=== PATIENT | female | born 1985 | race Caucasian/White ===

== ENCOUNTER 2020-11-07 15:16 | Emergency (ER) | payer BC, OTHER ==
[~2020-11-07] VITALS: Ht 172.7 cm; Wt 68.0 kg
[~2020-11-07 15:16] MED LIST: ACHD5005 PO; DCS100C PO; IBP600T1 PO; PREN1TAB25 PO
[2020-11-07] MEDS ORDERED: KETOROLAC 30 MG/ML VIAL IVP STA (15:58)
[2020-11-07] MEDS ORDERED: LACTATED RINGERS 1,000 ML IV STA (15:58)
[2020-11-07] MEDS ORDERED: ONDANSETRON 4 MG/2 ML (SDV) Z0FRAN IVP ONE (16:00)
[2020-11-07 16:15] LABS: HEMATOCRIT 39 % (35-52); HEMOGLOBIN 13.5 G/DL (11.5-16.0); MEAN CORPUSCULAR HEMOGLOBIN 31 PG (25-34); WHITE BLOOD COUNT 6.5 10^3/uL (4.3-11.0)
[2020-11-07 16:16] LABS: BASOPHILS % (AUTO) 1 % (0-10); EOSINOPHILS % (AUTO) 1 % (0-10); LYMPHOCYTES # (AUTO) 0.7 X 10^3 (1.0-4.0); LYMPHOCYTES % (AUTO) 11 % (12-44); MEAN CORPUSCULAR HGB CONC 35 G/DL (32-36); MEAN CORPUSCULAR VOLUME 90 FL (80-99); MEAN PLATELET VOLUME 11.1 FL (7.4-10.4); MONOCYTES # (AUTO) 0.4 X 10^3 (0.0-1.0); MONOCYTES % (AUTO) 7 % (0-12); NEUTROPHILS # (AUTO) 5.3 X 10^3 (1.8-7.8); NEUTROPHILS % (AUTO) 81 % (42-75); PLATELET COUNT 260 10^3/uL (130-400)
--- NOTE | 2020-11-07 16:29 | Diagnostic Imaging Report ---
INDICATION: Cold and flu symptoms. Frontal chest obtained at 03:47 p.m. Heart and mediastinal silhouette are normal in appearance. The lungs are clear. There is no pneumothorax or pleural fluid. IMPRESSION: Negative chest. Dictated by: Dictated on workstation # [id number]
[2020-11-07 16:44] LABS: BUN/CREATININE RATIO 14; CALCIUM 10.1 MG/DL (8.5-10.1); CARBON DIOXIDE 23 MMOL/L (21-32); CHLORIDE 104 MMOL/L (98-107); CREATININE SERUM 0.73 MG/DL (0.60-1.30); GFR ESTIMATED 90; GLUCOSE 114 MG/DL (70-105); POTASSIUM 3.9 MMOL/L (3.6-5.0); SODIUM 139 MMOL/L (135-145)
[2020-11-07 16:45] LABS: ALANINE AMINOTRANSFERASE 23 U/L (0-55); ALBUMIN 5.1 GM/DL (3.2-4.5); ALKALINE PHOSPHATASE 77 U/L (40-136); BILIRUBIN,TOTAL 0.3 MG/DL (0.1-1.0); TOTAL PROTEIN 7.8 GM/DL (6.4-8.2)
[2020-11-07 16:54] LABS: FIBRIN DEGRADATION PRODUCTS 0.24 UG/ML (0.00-0.49); INR 0.9 (0.8-1.4); PROTHROMBIN TIME PATIENT 12.7 SEC (12.2-14.7)
--- NOTE | 2020-11-07 17:03 | ED General ---
General Chief Complaint: Abdominal/GI Problems Stated Complaint: COVID SYMPTOMS Nursing Triage Note: Patient reports sudden onset of nausea/vomiting/head pressure and dizziness this afternoon. States she felt well prior to the onset of her symptoms. Source of Information: Patient Exam Limitations: No Limitations History of Present Illness Date Seen by Provider: Nov 07, 2020 Time Seen by Provider: 15:30 Initial Comments Here with report of nausea, vomiting, headache, dizziness, body aches and overall not feeling. She has not had Covid vaccination. She was at a [employer] and mixed with a lot of people. She did not wear a mask. Overall states that she feels pretty terrible and has body aches everywhere. Timing/Duration: 4-6 Hours Severity: Moderate Associated Systoms: No Chest Pain; Nausea/Vomiting; No Shortness of Air; Weakness Allergies and Home Medications Allergies Coded Allergies: No Known Drug Allergies (Unverified , 04/26/10) Home Medications Docusate Sodium 100 Mg Cap, 100 MG PO BID Prescribed by: YURY JI on 01/29/13 1019 Hydrocodone Bit/Acetaminophen 1 Tab Tablet, 2 TAB PO Q6H PRN Prescribed by: YURY JI on 01/29/13 1019 Ibuprofen 600 Mg Tab, 600 MG PO Q6H PRN Prescribed by: YURY JI on 01/29/13 1019 Vit#96/Ferrous Fum/Fa 1 Each Tablet, 1 TAB PO HS, (Reported) Patient Home Medication List Home Medication List Reviewed: Yes Review of Systems Review of Systems Constitutional: see HPI, chills; No fever; malaise EENTM: nose congestion; No throat pain Respiratory: No cough, No short of breath Cardiovascular: no symptoms reported Gastrointestinal: No diarrhea; nausea, vomiting Genitourinary: no symptoms reported Musculoskeletal: joint pain, muscle pain Skin: no symptoms reported Psychiatric/Neurological: No Symptoms Reported All Other Systems Reviewed Negative Unless Noted: Yes Past Tuafpff-Qzpiot-Gcpxrl Hx Patient Social History Tobacco Use?: No Substance use?: No Alcohol Use?: No Pt feels they are or have been: No Immunizations Up To Date Tetanus Booster (TDap): More than 5yrs Past Medical History Surgeries: Yes Section Respiratory: No Cardiac: No Neurological: No Reproductive Disorders: No Gastrointestinal: Yes Gastroesophageal Reflux Endocrine: Yes Hypothyroidsim Family Medical History Reviewed and Corrections made Physical Exam Vital Signs Vital Signs - First Documented 11/07/20 15:40 Temp 36.0 Pulse 107 Resp 24 B/P (MAP) 150/96 (114) Pulse Ox 100 O2 Delivery Room Air Capillary Refill : Less Than 3 Seconds Height, Weight, BMI Height: '" Weight: 184lbs. oz. 83.432261zo; 22.00 BMI Method: General Appearance: WD/WN, Anxious, Mild Distress HEENT: PERRL/EOMI, Pharynx Normal Neck: Non Tender, Supple Respiratory: Lungs Clear, Normal Breath Sounds Cardiovascular: No Murmur, Tachycardia Gastrointestinal: Non Tender, Soft Back: Normal Inspection, No CVA Tenderness, No Vertebral Tenderness Extremity: Normal Range of Motion, Non Tender Neurologic/Psychiatric: Alert, Oriented x3 Skin: Normal Color, Warm/Dry Progress/Results/Core Measures Suspected Sepsis SIRS Temperature: Pulse: 107 Respiratory Rate: 24 Laboratory Tests 11/07/20 15:40: White Blood Count 6.5 Blood Pressure 150 /96 Mean: 114 Laboratory Tests 11/07/20 15:40: Creatinine 0.73, INR Comment 0.9, Platelet Count 260, Total Bilirubin 0.3 Results/Orders Lab Results Laboratory Tests Test 11/07/20 15:40 Range/Units White Blood Count 6.5 4.3-11.0 10^3/uL Red Blood Count 4.33 L 4.35-5.85 10^6/uL Hemoglobin 13.5 11.5-16.0 G/DL Hematocrit 39 35-52 % Mean Corpuscular Volume 90 80-99 FL Mean Corpuscular Hemoglobin 31 25-34 PG Mean Corpuscular Hemoglobin Concent 35 32-36 G/DL Red Cell Distribution Width 12.2 10.0-14.5 % Platelet Count 260 130-400 10^3/uL Mean Platelet Volume 11.1 H 7.4-10.4 FL Immature Granulocyte % (Auto) 0 % Neutrophils (%) (Auto) 81 H 42-75 % Lymphocytes (%) (Auto) 11 L 12-44 % Monocytes (%) (Auto) 7 0-12 % Eosinophils (%) (Auto) 1 0-10 % Basophils (%) (Auto) 1 0-10 % Neutrophils # (Auto) 5.3 1.8-7.8 X 10^3 Lymphocytes # (Auto) 0.7 L 1.0-4.0 X 10^3 Monocytes # (Auto) 0.4 0.0-1.0 X 10^3 Eosinophils # (Auto) 0.0 0.0-0.3 10^3/uL Basophils # (Auto) 0.0 0.0-0.1 10^3/uL Immature Granulocyte # (Auto) 0.0 0.0-0.1 10^3/uL Percent Immature Platelet Fraction 4.4 0.0-7.6 % Prothrombin Time 12.7 12.2-14.7 SEC INR Comment 0.9 0.8-1.4 Activated Partial Thromboplast Time 28 24-35 SEC D-Dimer 0.24 0.00-0.49 UG/ML Sodium Level 139 135-145 MMOL/L Potassium Level 3.9 3.6-5.0 MMOL/L Chloride Level 104 98-107 MMOL/L Carbon Dioxide Level 23 21-32 MMOL/L Anion Gap 12 5-14 MMOL/L Blood Urea Nitrogen 10 7-18 MG/DL Creatinine 0.73 0.60-1.30 MG/DL Estimat Glomerular Filtration Rate 90 BUN/Creatinine Ratio 14 Glucose Level 114 H 70-105 MG/DL Calcium Level 10.1 8.5-10.1 MG/DL Corrected Calcium 8.5-10.1 MG/DL Total Bilirubin 0.3 0.1-1.0 MG/DL Aspartate Amino Transf (AST/SGOT) 25 5-34 U/L Alanine Aminotransferase (ALT/SGPT) 23 0-55 U/L Alkaline Phosphatase 77 40-136 U/L Total Protein 7.8 6.4-8.2 GM/DL Albumin 5.1 H 3.2-4.5 GM/DL Serum Test, Qualitative NEGATIVE NEGATIVE Micro Results Microbiology 11/07/20 Influenza Types A,B Antigen (CRISTÓBAL) - Final, Complete My Orders Orders - ALEKS MAURICIO MD Chest 1 View Ap/Pa Only (11/07/20 15:54) Ondansetron Injection (Zofran Injectio (11/07/20 16:00) Lactated Ringers (Lr 1000 Ml Iv Solution (11/07/20 15:58) Ed Iv/Invasive Line Start (11/07/20 15:58) Ketorolac Injection (Toradol Injection) (11/07/20 15:58) Cbc With Automated Diff (11/07/20 15:58) Comprehensive Metabolic Panel (11/07/20 15:58) Fibrin Degradation Products (11/07/20 15:58) Hcg,Qualitative Serum (11/07/20 15:58) Protime With Inr (11/07/20 15:58) Partial Thromboplastin Time (11/07/20 15:58) Influenza A And B Antigens (11/07/20 15:58) Covid 19 Inhouse Test (11/07/20 15:58) Medications Given in ED Current Medications Medications Dose Ordered Sig/Inez Route Start Time Stop Time Status Last Admin Dose Admin Ondansetron HCl 4 mg ONCE ONCE IVP 11/07/20 16:00 11/07/20 16:01 DC 11/07/20 16:06 4 MG Vital Signs/I&O 11/07/20 15:40 Temp 36.0 Pulse 107 Resp 24 B/P (MAP) 150/96 (114) Pulse Ox 100 O2 Delivery Room Air Capillary Refill : Less Than 3 Seconds Blood Pressure Mean: 114 Progress Note : Progress Note Seen and evaluated. IV, labs, LR 1 L bolus, Zofran 4 mg IV, Toradol 30 mg IV, influenza screen and Covid screen ordered. Monitor patient. 1730: Influenza screen is positive. We are still pending Covid screen. She is overall feeling better. Pending a few labs. Monitor patient. 1825: Labs reviewed as well as chest x-ray no acute findings other than the influenza. Covid still pending. I did discuss with the patient that she would be a person under investigation for COVID-19 and she will take appropriate precautions. We will initiate Tamiflu due to the double positive influenza. Discharged home with return precautions. Patient verbalized understanding of instructions and agreement with plan. Diagnostic Imaging Diagonstic Imaging: Xray Plain Films/CT/US/NM/MRI: chest Comments [facility]. [place], [place] NAME: LATOSHA CINTRON MED REC#: [id number] PT STATUS: REG ER : 1985 PHYSICIAN: ALEKS MAURICIO MD ADMIT DATE: 11/07/20/ER FS Signed Date of Exam:11/07/20 CHEST 1 VIEW AP/PA ONLY INDICATION: Cold and flu symptoms. Frontal chest obtained at 03:47 p.m. Heart and mediastinal silhouette are normal in appearance. The lungs are clear. There is no pneumothorax or pleural fluid. IMPRESSION: Negative chest. Dictated by: Dictated on workstation # [id number] Dict: 11/07/20 1619 Trans: 11/07/20 1708 [facility] [id number] Interpreted by: PREETHI SHANKS MD Electronically signed by: PREETHI SHANKS MD 11/07/20 1708 Departure Impression Primary Impression: Influenza A Additional Impression: Influenza B Disposition: HOME, SELF-CARE Condition: Stable Departure-Patient Inst. Decision time for Depature: 18:26 Referrals: NO,LOCAL PHYSICIAN (PCP/Family) Primary Care Physician Patient Instructions: COVID-19 ED, Flu, Adult (DC) Add. Discharge Instructions: All discharge instructions reviewed with patient and/or family. Voiced understanding. Drink plenty of fluids and get plenty of rest. You will need to remain isolated until test results are noted. If they are negative, you will need remain isolated for 3 days after symptoms resolve but a minimum of 7 days due to the influenza infection. If they are positive, the health department will call you and direct quarantine/isolation timeframe. You may take ibuprofen 600 mg every 8 hours as needed for fever or pain. You may take Tylenol/acetaminophen 1000 mg every 8 hours as needed for fever or pain. Return for worse pain, fever, vomiting, weakness, breathing problems or other concerns as needed. Scripts Oseltamivir Phosphate (Oseltamivir Phosphate) 75 Mg Capsule 75 MG PO BID for 5 Days, #10 CAP 0 Refills Prov: ALEKS MAURICIO MD 11/07/20 ALEKS MAURICIO MD Nov 07, 2020 17:03
[2020-11-07] MEDS ORDERED: OSEL75CA15 PO (18:29)
[2020-11-07] MEDS ORDERED: ONDA4TAB11 PO (18:39)
[2020-11-07 18:40] VITALS: BP 109/58
== END 2020-11-07 18:40 | disposition home or self-care (01) ==
LOC: ER FS 15:17 → EDUNIT# 15:23 → ER FS 15:25
DX: U07.1 COVID-19 (principal); J10.1 Influenza due to other identified influenza virus with other respiratory manifestations
CPT/HCPCS: 36415; 71045; 80053; 84703; 85025; 85379; 85610; 85730; 87636; 87804